=== PATIENT | female | born 1990 | race Caucasian/White ===

== ENCOUNTER 2018-10-06 07:18 | Emergency (ER) | payer OTHER ==
[2018-10-06 07:22] VITALS: TEMP 98.3; O2SAT 99
[2018-10-06 07:30] VITALS: BMI 38.4
--- NOTE | 2018-10-06 09:28 | ED PDOC ---
Lower Extremity Pain/Injury Time Seen by Provider: 10/06/18 07:28 Chief Complaint (Nursing): Lower Extremity Problem/Injury Chief Complaint (Provider): right groin pain History Per: Patient History/Exam Limitations: no limitations Onset/Duration Of Symptoms: Days (5), Sudden Onset Current Symptoms Are (Timing): Still Present Severity: Moderate Additional Complaint(s): 28yo female states was getting off high stool on tuesday and twisted leg, causing sudden strain sensation to upper leg and groin. She then reinjured it in twisting motion 2 days ago. Using OTC analgesics with some relief. Denies numbness, tingling, urinary symptoms or back pain. Past Medical History Reviewed: Historical Data, Nursing Documentation, Vital Signs Vital Signs: Last Vital Signs Temp 98.3 F 10/06/18 07:20 Pulse 88 10/06/18 07:46 Resp 16 10/06/18 07:46 BP 177/106 H 10/06/18 07:46 Pulse Ox 99 10/06/18 07:20 Primary Care Provider: Garo Juarez - Medical History PMH: Diabetes Denies: HTN - Family History Family History: States: Unknown Family Hx - Living Arrangements Living Arrangements: With Family - Social History Current smoker - smoking cessation education provided: No - Home Medications Home Medications: Ambulatory Orders Medication Instructions Recorded Glimepiride [amaRYL] 2 mg PO DAILY 04/25/15 Ibuprofen [Motrin] 600 mg PO Q8 PRN #6 tab 04/25/15 MetFORMIN [glucoPHAGE] 1,000 mg PO DAILY 04/25/15 Cyclobenzaprine [Cyclobenzaprine 10 mg PO Q8 PRN #9 tab 10/06/18 HCl] Ibuprofen [Motrin Tab] 600 mg PO Q6 PRN #15 tab 10/06/18 - Allergies Allergies/Adverse Reactions: Allergies Allergy/AdvReac Type Severity Reaction Status Date / Time Penicillins Allergy RASH Verified 10/06/18 07:27 Review of Systems ROS Statement: Except As Marked, All Systems Reviewed And Found Negative Constitutional: Negative for: Fever Cardiovascular: Negative for: Chest Pain Respiratory: Negative for: Shortness of Breath Gastrointestinal: Negative for: Abdominal Pain Genitourinary Female: Negative for: Dysuria Musculoskeletal: Positive for: Leg Pain. Negative for: Neck Pain, Back Pain Skin: Negative for: Rash Neurological: Negative for: Weakness, Numbness, Headache, Dizziness Physical Exam - Reviewed Nursing Documentation Reviewed: Yes Vital Signs Reviewed: Yes - Physical Exam Appears: Positive for: Non-toxic Head Exam: Positive for: ATRAUMATIC, NORMAL INSPECTION, NORMOCEPHALIC Skin: Positive for: Normal Color, Warm, DRY Eye Exam: Positive for: EOMI, Normal appearance, PERRL ENT: Positive for: Normal ENT Inspection Neck: Positive for: Normal, Painless ROM Cardiovascular/Chest: Positive for: Regular Rate, Rhythm Respiratory: Positive for: CNT, Normal Breath Sounds Gastrointestinal/Abdominal: Positive for: Soft. Negative for: Tenderness Extremity: Positive for: Tenderness (R groin no warmth or erythema +pain w ROM R hip into groin). Negative for: Deformity, Swelling Neurological/Psych: Positive for: Awake, Alert, Normal Tone, Oriented. Negative for: Motor/Sensory Deficits, Facial Droop - ECG O2 Sat by Pulse Oximetry: 99 Medical Decision Making Medical Decision Making: pelvis and hip xrays neg on my prelim read given toradol 15mg IM with some improvement Rx motrin 600mg and flexeril 10mg, caution w driving or operating machinery, avoid standing prolonged periods for next several days. Check BP at PMD, she believes BP high because of pain, no issues w BP in past, has PMD appt next week will recheck. Disposition - Clinical Impression Clinical Impression: Groin strain - Patient ED Disposition Is Patient to be Admitted: No - Disposition Referrals: Tim Cesar MD [Staff Provider] - Disposition: Routine/Home Disposition Time: 09:30 Condition: STABLE Additional Instructions: Return to ER for any worse or new symptoms. Take medications as directed for pain. Muscle relaxants will cause drowsiness do not drive or operate machinery while taking. Check blood pressure with your doctor next week. Use warm compress to affected area 3x daily for 20min. Prescriptions: Cyclobenzaprine [Cyclobenzaprine HCl] 10 mg PO Q8 PRN #9 tab PRN Reason: Muscle Spasm Ibuprofen [Motrin Tab] 600 mg PO Q6 PRN #15 tab PRN Reason: Pain, Moderate (4-7) Instructions: Groin Strain, Muscle Strain (DC)
[2018-10-06 10:02] VITALS: BP 176/89; PULSE 82; RESP 15
--- NOTE | 2018-10-06 15:30 | RAD ---
Date of service: 10/06/2018 PROCEDURE: Pelvis and right hip HISTORY: R groin pain COMPARISON: None TECHNIQUE: Two views FINDINGS: There are no osseous abnormalities to suggest fracture. The pelvic ring is intact. Preserved femoral-acetabular relationship. Negative study for protrusio, subluxation or dislocation. Degenerative changes: None IMPRESSION: Negative study
== END 2018-10-06 10:00 | disposition home or self-care (01) ==
LOC: H.ER 07:18
DX: S39.011A Strain of muscle, fascia and tendon of abdomen, initial encounter (principal); E11.9 Type 2 diabetes mellitus without complications; Z79.84 Long term (current) use of oral hypoglycemic drugs; Z88.0 Allergy status to penicillin
CPT/HCPCS: 73502; 81025; 96372; 99283; J1885